=== PATIENT | female | born 1960 | race Caucasian/White ===

== ENCOUNTER 2022-07-30 14:29 | Outpatient (REF) | payer MEDICARE, MEDICAID, SELFPAY ==
--- NOTE | ~2022-07-30 | XR_ITS ---
EXAMINATION: XR HIP, LEFT CLINICAL INFORMATION: Pain COMPARISON: None available. TECHNIQUE: Two views of the left hip. FINDINGS: No fracture, dislocation, destructive process. There are mild degenerative changes left hip with some spurring at the base of the femoral head. Borderline hip joint narrowing without erosive change. There is spurring of the greater trochanter with small benign oval calcification adjacent to apex greater trochanter likely calcific tendinosis. The left SI joint and the pubis are unremarkable. Visualized bowel gas unremarkable. XR/XR hip LT min 2V IMPRESSION: -Mild degenerative changes left hip. -Spurring greater trochanter with small calcification adjacent to apex likely calcific tendinosis.
== END 2022-07-30 14:30 | disposition home or self-care (01) ==
LOC: HO.XRAY 14:29
PROVIDERS: Visit Provider Internal Medicine
DX: R10.32 Left lower quadrant pain (principal); M54.51 Vertebrogenic low back pain; M47.816 Spondylosis without myelopathy or radiculopathy, lumbar region
CPT/HCPCS: 73502; 99202

== ENCOUNTER → 2022-10-29 14:52 | Outpatient (BNVA) | payer MEDICARE, MEDICAID, SELFPAY | PROVIDERS: PCP Physical Medicine & Rehabilitation; Visit Provider Internal Medicine | DX: M53.3 Sacrococcygeal disorders, not elsewhere classified (principal); M46.1 Sacroiliitis, not elsewhere classified | CPT/HCPCS: 99212 ==

== ENCOUNTER 2022-11-21 06:03 | Outpatient (REF) | payer MEDICARE, MEDICAID, SELFPAY ==
--- NOTE | ~2022-11-21 | XR_ITS ---
EXAMINATION: XR RIBS, LEFT CLINICAL INFORMATION: Pain COMPARISON: None available. TECHNIQUE: 3 views of the left ribs were obtained. FINDINGS: Lungs are clear. No consolidation, pneumothorax, or pleural effusion. The cardiomediastinal silhouette and pulmonary vasculature are normal. Osseous structures are notable for multiple healed left-sided rib fractures but no definite acute fractures are identified. XR/XR ribs LT min 3V w CXR1V IMPRESSION: Multiple healed left-sided rib fractures. No definite acute fracture.
--- NOTE | ~2022-11-21 | FL_ITS ---
EXAMINATION: XR FLUOROSCOPY WITH IMAGES CLINICAL INFORMATION: Sacrococcygeal disorders, not elsewhere classified. COMPARISON: None available. TECHNIQUE: Fluoroscopy Supervised By: Dr. Cuello. Fluoroscopy Time: 0.2 minutes. Cumulative Dose: 4.47 mGy. DAP: 0.394 Gycm2. Images: 4. FINDINGS: Images demonstrate needle placement and contrast injection over the bilateral sacroiliac joints. FL/FL guidance in treatment room IMPRESSION: Fluoroscopy guidance for pain management procedure.
== END 2022-11-21 06:04 | disposition home or self-care (01) ==
LOC: HO.XRAY 06:03
PROVIDERS: Visit Provider Internal Medicine
DX: M53.3 Sacrococcygeal disorders, not elsewhere classified (principal); R07.89 Other chest pain; M46.1 Sacroiliitis, not elsewhere classified
CPT/HCPCS: 27096; 71101; J2795

== ENCOUNTER 2022-11-21 09:56 | Outpatient (AMB) | payer MEDICARE, MEDICAID, SELFPAY ==
[2022-11-21 09:59] VITALS: BP 140/70; PULSE 97; RESP 14; O2SAT 94
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
== END 2022-11-21 10:22 | disposition home or self-care (01) ==
LOC: HO.PMCPRC 09:56
PROVIDERS: PCP Physical Medicine & Rehabilitation; Visit Provider Internal Medicine
DX: M46.1 Sacroiliitis, not elsewhere classified (principal)
CPT/HCPCS: 27096

== ENCOUNTER 2022-12-03 13:57 | Outpatient (AMB) | payer MEDICARE, MEDICAID, SELFPAY ==
[2022-12-03 14:03] VITALS: BP 150/86; PULSE 108; RESP 14
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
== END 2022-12-03 14:42 | disposition home or self-care (01) ==
PROVIDERS: PCP Physical Medicine & Rehabilitation; Visit Provider Internal Medicine
DX: R07.89 Other chest pain (principal); M53.3 Sacrococcygeal disorders, not elsewhere classified; M46.1 Sacroiliitis, not elsewhere classified; G58.8 Other specified mononeuropathies
CPT/HCPCS: 99214

== ENCOUNTER → 2022-12-03 13:57 | Outpatient (BNVA) | payer MEDICARE, MEDICAID, SELFPAY | PROVIDERS: PCP Physical Medicine & Rehabilitation; Visit Provider Internal Medicine | DX: M53.3 Sacrococcygeal disorders, not elsewhere classified (principal); M46.1 Sacroiliitis, not elsewhere classified; G58.8 Other specified mononeuropathies; R07.89 Other chest pain | CPT/HCPCS: 99212 ==

== ENCOUNTER 2022-12-26 06:02 | Outpatient (REF) | payer MEDICARE, MEDICAID, SELFPAY | END 2022-12-26 06:03 | disposition home or self-care (01) | LOC: CF 06:02 | PROVIDERS: Visit Provider Internal Medicine | DX: G58.8 Other specified mononeuropathies (principal) ==

== ENCOUNTER 2023-01-21 15:32 | Outpatient (AMB) | payer MEDICARE, MEDICAID, SELFPAY ==
--- NOTE | 2023-01-21 15:47 | MHC.OFFVIS ---
Intake Vital Signs 01/21/23 15:48 Height 5 ft 2.5 in Weight 138 lb BMI 24.8 BP 145/74 H Blood Pressure Location Rt brachial Position Sitting Respiration 14 Pulse 87 Pulse Source Pulse Oximeter Pulse Oximetry (%) 97 Oxygen Delivery Method Room Air Intake Visit Reasons: Review procedures back Allergies aspirin Allergy (Unknown, Verified 12/03/22 14:05) NAUSEA AND VOMITING erythromycin base Allergy (Unknown, Verified 12/03/22 14:05) convulsions ibuprofen Allergy (Unknown, Verified 12/03/22 14:05) vomiting HPI Review procedures back HPI Details 62-year-old female who presents today to the office for a review of procedures. The patient had her annual physical on 01/18/23. She has visited Dr. Mckeon. She is trying to wean off her morphine dose. The patient will travel to [place] from March 17 until May 01. She has been following up with Dr. Banks for PTSD and ADHD. She is interested in proceeding with medial cluneal nerve stimulator trial given lack of relief from other treatment modalities to date. Past procedures: 11/21/22: Sacroiliac Joint Injection, Bilateral: 80% relief for one day [facility] Medical History (Updated 12/06/22 @ 10:51 by Fortino Cuello MD) Sacroiliitis Fibromyalgia Scoliosis Cervicalgia Review of Systems Const All systems reviewed & are unremarkable except as noted in HPI and below Physical Exam Vital Signs: Last Vital Signs Pulse 87 01/21/23 15:48 Resp 14 01/21/23 15:48 BP 145/74 H 01/21/23 15:48 Pulse Ox 97 01/21/23 15:48 Oxygen Delivery Method Room Air 01/21/23 15:48 BMI result Body Mass Index 24.8 General: Appears afebrile. Alert and oriented. Mood and affect appropriate. Follows and participates in conversation appropriately. Respiratory effort is unlabored. Able to transition from sit to stand unassisted. Ambulates with bilaterally normal heel strike and toe off. Results Reviewed Results Reviewed: No imaging is available for review. 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 Once we have received psychological clearance, we will plan for a bilateral medial cluneal nerve stimulator trial. The patient will receive a call from [facility] for the psychological assessment. I also informed the patient that insurance approval is required. Once we receive a psychological clearance, we will file a PA for approval and keep her updated. Scribed for Dr. Cuello by Rogelio Tariq, medical education coordinator, on 01/21/2023. I, Dr. Cuello, have personally reviewed and agree with the information entered by the scribe. Coding Level of Care Code Est Pt Level 3 (51586) Diagnoses Cluneal neuropathy G58.8 Sacroiliac joint dysfunction M53.3
[2023-01-21 15:48] VITALS: BP 145/74; PULSE 87; RESP 14; O2SAT 97; BMI 24.8
== END 2023-01-21 15:52 | disposition home or self-care (01) ==
PROVIDERS: PCP Physical Medicine & Rehabilitation; Visit Provider Internal Medicine
DX: M53.3 Sacrococcygeal disorders, not elsewhere classified (principal); G58.8 Other specified mononeuropathies
CPT/HCPCS: 99213

== ENCOUNTER → 2023-01-21 15:32 | Outpatient (BNVA) | payer MEDICARE, MEDICAID, SELFPAY | PROVIDERS: PCP Physical Medicine & Rehabilitation; Visit Provider Internal Medicine | DX: G58.8 Other specified mononeuropathies (principal); M53.3 Sacrococcygeal disorders, not elsewhere classified | CPT/HCPCS: 99212 ==